=== PATIENT | female | born 1950 | race African-American/Black ===

== ENCOUNTER → 2023-09-15 | Outpatient (REF) | payer MEDICARE ==
[~2023-09-15] MED LIST: CEFTRIAXONE 1 GM VIAL ONE; FENTANYL CITRATE/PF 100MCG/2 ML INJ ONE; IOPAMIDOL 370 MG/ML 100 ML INFUS..BTL INJ ONE; LIDOCAINE 2% /EPINEPHRINE 20 ML SDV INJ ONE; LIDOCAINE HCL 1% LOCAL INJ 20 ML VIAL ONE; MIDAZOLAM HCL 2 MG/2 ML VIAL ONE; SODIUM CHLORIDE 0.9% 250ML 250 ML ONE; SODIUM CHLORIDE 0.9% 500ML 500 ML ONE
[2023-09-15 12:28] LABS: BASOPHILS # (AUTO) 0.1 (0.0-0.1); BASOPHILS % 0.4 % (0.0-1.0); EOSINOPHILS # (AUTO) 0.1 (0.0-0.4); EOSINOPHILS % 0.9 % (0.0-6.0); HEMATOCRIT 34.7 % (34.2-44.1); HEMOGLOBIN 11.6 g/dL (12.0-16.0); LYMPHOCYTES # (AUTO) 0.8 (1.0-3.2); LYMPHOCYTES % 6.2 % (18.0-39.1); MEAN CORPUSCULAR HGB CONC 33.4 g/dL (31-35); MEAN CORPUSCULAR VOLUME 74.8 fL (81-99); MONOCYTES # (AUTO) 0.4 (0.2-0.8); MONOCYTES % 3.4 % (4.4-11.3); NEUTROPHILS # (AUTO) 11.2 (2.1-6.9); NEUTROPHILS % 88.2 % (38.7-80.0); PLATELET COUNT 581 x10e3/uL (140-360); RED BLOOD COUNT 4.64 x10e6/uL (3.6-5.1); RED CELL DISTRIBUTION WIDTH 14.1 % (11.7-14.4); WHITE BLOOD COUNT 12.65 x10e3/uL (4.8-10.8)
[2023-09-15 12:47] LABS: INR 1.13; PROTHROMBIN TIME 14.8 seconds (11.9-14.5)
[2023-09-15 12:49] LABS: PARTIAL THROMBOPLASTIN TIME 37.1 seconds (23.8-35.5)
== END ==
LOC: DX 10:42
PROVIDERS: ATTEND Urology
DX: C67.9 Malignant neoplasm of bladder, unspecified (principal); N13.30 Unspecified hydronephrosis; N18.9 Chronic kidney disease, unspecified
CPT/HCPCS: 36415; 36561; 76937; 76942; 85025; 85610; 85730; 87086; 87205; C1769; C1788; C1874; J0696; J2001 ×2; J2250; J3010; J7040; J7050; Q9967; 50433; 99152; 99153

== ENCOUNTER 2023-12-09 19:58 | Emergency (ER) | payer MEDICARE ==
[~2023-12-09] VITALS: Ht 157.5 cm; Wt 70.3 kg
[~2023-12-09 19:58] MED LIST changes: +ATORVASTATIN CA20 MG PO; -CEFTRIAXONE 1 GM VIAL ONE; +DEXAMETHASONE4 MG PO; -FENTANYL CITRATE/PF 100MCG/2 ML INJ ONE; +HYDROCODON-ACE1 EAC9 PO; -IOPAMIDOL 370 MG/ML 100 ML INFUS..BTL INJ ONE; -LIDOCAINE 2% /EPINEPHRINE 20 ML SDV INJ ONE; -LIDOCAINE HCL 1% LOCAL INJ 20 ML VIAL ONE; -MIDAZOLAM HCL 2 MG/2 ML VIAL ONE; +OLANZAPINE10 MG PO; +PROMETHAZINE HC25 M1 PO; -SODIUM CHLORIDE 0.9% 250ML 250 ML ONE; -SODIUM CHLORIDE 0.9% 500ML 500 ML ONE; +TOPROL XL50 MG PO
[2023-12-09 21:36] LABS: INR 0.93; PROTHROMBIN TIME 12.7 seconds (11.9-14.5)
[2023-12-09 21:37] LABS: PARTIAL THROMBOPLASTIN TIME 25.9 seconds (23.8-35.5)
[2023-12-09 21:45] LABS: ALBUMIN 3.4 g/dL (3.5-5.0); ANION GAP 15.9 mmol/L (8-16); BILIRUBIN,TOTAL 0.4 mg/dL (0.2-1.2); CALCIUM 9.4 mg/dL (8.4-10.2); CREATININE, SERUM 0.96 mg/dL (0.57-1.11); TOTAL PROTEIN 6.7 g/dL (6.5-8.1)
[2023-12-09 21:47] LABS: BASOPHILS % 1.3 % (0.0-1.0); EOSINOPHILS # (AUTO) 0.2 (0.0-0.4); EOSINOPHILS % 5.1 % (0.0-6.0); HEMATOCRIT 31.1 % (34.2-44.1); HEMOGLOBIN 10.3 g/dL (12.0-16.0); LYMPHOCYTES # (AUTO) 1.5 (1.0-3.2); LYMPHOCYTES % 51.9 % (18.0-39.1); MEAN CORPUSCULAR HEMOGLOBIN 27.5 pg (28-32); MEAN CORPUSCULAR HGB CONC 33.1 g/dL (31-35); MEAN CORPUSCULAR VOLUME 83.2 fL (81-99); MONOCYTES # (AUTO) 0.1 (0.2-0.8); NEUTROPHILS # (AUTO) 0.8 (2.1-6.9); NEUTROPHILS % 25.2 % (38.7-80.0); PLATELET COUNT 734 x10e3/uL (140-360); RED BLOOD COUNT 3.74 x10e6/uL (3.6-5.1); RED CELL DISTRIBUTION WIDTH 19.4 % (11.7-14.4); WHITE BLOOD COUNT 2.97 x10e3/uL (4.8-10.8)
[2023-12-09 21:52] LABS: POTASSIUM 2.9 mmol/L (3.5-5.1)
[2023-12-09] MEDS: ONDANSETRON HCL INJ 2MG/ML 2ML 2 MG/ML VIAL IV STA (22:31)
[2023-12-09] MEDS: Morphine 4mg INJECTION 4 MG/ML INJ IV ONE (22:33)
[2023-12-09 22:58] LABS: BILIRUBIN,URINE NEGATIVE (NEGATIVE); CLARITY,URINE CLEAR (CLEAR); COLOR,URINE YELLOW (YELLOW); GLUCOSE, URINE NEGATIVE (NEGATIVE); KETONES,URINE NEGATIVE (NEGATIVE); LEUKOCYTE ESTERASE ,URINE SMALL (NEGATIVE); NITRITE,URINE NEGATIVE (NEGATIVE); PH,URINE 6 (5 - 7); PROTEIN,URINE DIPSTICK 2+ (NEGATIVE); URINE UROBILINOGEN 0.2 mg/dL (0.2 - 1)
[2023-12-09] MEDS ORDERED: IOPAMIDOL 370 MG/ML 100 ML INFUS..BTL INJ ONE (23:15)
[2023-12-09 23:35] LABS: BACTERIA,URINE MANY /HPF; EPITHELIAL CELLS,URINE MODERATE /LPF; WBC,URINE (MAN) >50 /HPF (0-5)
[2023-12-10] MEDS ORDERED: CIPRO500 MG PO (01:19)
[2023-12-10] MEDS ORDERED: KETOROLAC TROME10 MG PO (01:19)
[2023-12-10 01:36] VITALS: O2SAT 100
[2023-12-10 04:38] LABS: EOSINOPHILS % (MANUAL) 1 % (0-7); LYMPHOCYTES % (MANUAL) 61 % (19-48); METAMYELOCYTES % (MANUAL) 3 % (0-0); MONOCYTES % (MANUAL) 3 % (3.4-9.0); MYELOCYTES % (MANUAL) 5 % (0-0); NEUTROPHILS % (MANUAL) 27 % (40-74)
[2023-12-10 04:39] LABS: HYPOCHROMASIA MODERATE; RBC MORPHOLOGY COMMENT ABNORMAL; STOMATOCYTES MODERATE
[2023-12-10 04:40] LABS: ANISOCYTOSIS MODE; PLATELET ESTIMATE ADEQUATE; PLATELET MORPHOLOGY COMMENT NORMAL; POIKILOCYTOSIS MODERATE; TEAR DROP CELLS FEW
== END 2023-12-10 01:36 | disposition home or self-care (01) ==
LOC: ER 20:03
DX: R10.30 Lower abdominal pain, unspecified (principal); C67.9 Malignant neoplasm of bladder, unspecified; N39.0 Urinary tract infection, site not specified; I10 Essential (primary) hypertension; D64.9 Anemia, unspecified; Z11.52 Encounter for screening for COVID-19
CPT/HCPCS: 36415; 74178; 80053; 81001; 85025; 85610; 85730; 87086; 93041; 99284; J2270; J2405; Q9967; U0002

== ENCOUNTER 2024-04-20 09:26 | Inpatient (IN) | payer MEDICARE ==
[~2024-04-20] VITALS: Ht 157.5 cm; Wt 70.3 kg
[~2024-04-20 09:26] MED LIST changes: +AZO BLADDER CO300 MG PO; +CEFDINIR300 MG PO; +CIPRO500 MG PO; +DEPAKOTE250 MG PO; +EX-LAX15 M1 PO; +KETOROLAC TROME10 MG PO
[2024-04-20 10:35] LABS: BASOPHILS % 0.4 % (0.0-1.0); HEMATOCRIT 25.1 % (34.2-44.1); HEMOGLOBIN 8.6 g/dL (12.0-16.0); LYMPHOCYTES # (AUTO) 0.7 (1.0-3.2); LYMPHOCYTES % 5.9 % (18.0-39.1); MEAN CORPUSCULAR HEMOGLOBIN 25.4 pg (28-32); MEAN CORPUSCULAR HGB CONC 34.3 g/dL (31-35); MEAN CORPUSCULAR VOLUME 74.3 fL (81-99); MONOCYTES # (AUTO) 0.2 (0.2-0.8); NEUTROPHILS # (AUTO) 9.9 (2.1-6.9); NEUTROPHILS % 89.4 % (38.7-80.0); RED BLOOD COUNT 3.38 x10e6/uL (3.6-5.1); RED CELL DISTRIBUTION WIDTH 18.5 % (11.7-14.4); WHITE BLOOD COUNT 11.12 x10e3/uL (4.8-10.8)
[2024-04-20 10:39] LABS: INR 1.17; PROTHROMBIN TIME 15.7 seconds (11.9-14.5)
[2024-04-20 10:42] LABS: PLATELET COUNT 63 x10e3/uL (140-360)
[2024-04-20 10:50] LABS: ALBUMIN 2.5 g/dL (3.5-5.0); ALBUMIN/GLOBULIN RATIO 0.5 (0.8-2.0); ANION GAP 26.9 mmol/L (8-16); BILIRUBIN,TOTAL 0.5 mg/dL (0.2-1.2); CALCIUM 9.1 mg/dL (8.4-10.2); CREATININE, SERUM 2.82 mg/dL (0.57-1.11); POTASSIUM 4.9 mmol/L (3.5-5.1); TOTAL PROTEIN 7.7 g/dL (6.5-8.1)
[2024-04-20 11:28] LABS: BAND NEUTROPHILS % (MANUAL) 1 %; LYMPHOCYTES % (MANUAL) 3 % (19-48); MONOCYTES % (MANUAL) 1 % (3.4-9.0); NEUTROPHILS % (MANUAL) 95 % (40-74)
[2024-04-20 11:30] LABS: ANISOCYTOSIS MODERATE; HYPOCHROMASIA MODERATE; MICROCYTOSIS MODERATE; PLATELET ESTIMATE MODERATELY DECREASED; PLATELET MORPHOLOGY COMMENT NORMAL; POLYCHROMASIA FEW; RBC MORPHOLOGY COMMENT ABNORMAL; TARGET CELLS FEW
[2024-04-20] MEDS: SODIUM CHLORIDE 0.9% 1000ML 1,000 ML IV STA (11:30)
[2024-04-20] MEDS: SODIUM CHLORIDE 0.9% IV ONE (13:11)
[2024-04-20 13:29] LABS: BILIRUBIN,URINE SMALL (NEGATIVE); CLARITY,URINE CLOUDY (CLEAR); COLOR,URINE AMBER (YELLOW); GLUCOSE, URINE NEGATIVE (NEGATIVE); KETONES,URINE 1+ (NEGATIVE); LEUKOCYTE ESTERASE ,URINE LARGE (NEGATIVE); NITRITE,URINE POSITIVE (NEGATIVE); PH,URINE 5.5 (5 - 7); PROTEIN,URINE DIPSTICK >=300 (NEGATIVE); URINE UROBILINOGEN 1 mg/dL (0.2 - 1)
[2024-04-20 13:51] LABS: AMORPHOUS SEDIMENT,URINE FEW (FEW); BACTERIA,URINE MANY /HPF; EPITHELIAL CELLS,URINE RARE /LPF; RBC,URINE >50 /HPF (0-5); WBC,URINE (MAN) >50 /HPF (0-5)
[2024-04-20] MEDS: Vancomycin IV 1 GM in SODIUM CHLORIDE 0.9% 250ML 250 ML IV ONE (14:10)
[2024-04-20 15:00] VITALS: PULSE 126; RESP 18; TEMP 97.8
[2024-04-20 15:41] VITALS: BP 154/95; PULSE 120; RESP 20; TEMP 97.8; O2SAT 98
[2024-04-20 15:55] VITALS: BP 154/95; PULSE 120; RESP 20; TEMP 98.7; O2SAT 98
[2024-04-20 16:11] VITALS: BP 154/95; PULSE 120; RESP 20; TEMP 98.7; O2SAT 98
[2024-04-20] MEDS: SODIUM CHLORIDE 0.9% 1000ML 1,000 ML IV SCH (16:25)
[2024-04-20 20:00] VITALS: BP 145/83; PULSE 87; RESP 18; TEMP 98.4; O2SAT 90
[2024-04-20] MEDS ORDERED: POLYETHYLENE GLYCOL 3350 17 GM PACK PO PRN (21:00)
[2024-04-20] MEDS ORDERED: ONDANSETRON HCL INJ 2MG/ML 2ML 2 MG/ML VIAL IV PRN (21:00)
[2024-04-20] MEDS: METOPROLOL SUCCINATE 50 MG TAB XL PO SCH (21:40)
[2024-04-20 23:58] VITALS: BP 132/78; PULSE 125; RESP 16; TEMP 98.4; O2SAT 100
[2024-04-21] MEDS: Vancomycin IV 750 MG in SODIUM CHLORIDE 0.9% 100 ML IV ONE (03:42)
[2024-04-21 05:55] LABS: BASOPHILS % 0.3 % (0.0-1.0); LYMPHOCYTES # (AUTO) 0.7 (1.0-3.2); LYMPHOCYTES % 5.9 % (18.0-39.1); MEAN CORPUSCULAR HEMOGLOBIN 26.4 pg (28-32); MEAN CORPUSCULAR HGB CONC 35.5 g/dL (31-35); MEAN CORPUSCULAR VOLUME 74.3 fL (81-99); MONOCYTES # (AUTO) 0.3 (0.2-0.8); MONOCYTES % 2.2 % (4.4-11.3); NEUTROPHILS # (AUTO) 10.6 (2.1-6.9); NEUTROPHILS % 87.9 % (38.7-80.0); PLATELET COUNT 53 x10e3/uL (140-360); RED BLOOD COUNT 2.65 x10e6/uL (3.6-5.1); RED CELL DISTRIBUTION WIDTH 18.6 % (11.7-14.4); RETICULOCYTE % 0.7 % (0.8-2.2); WHITE BLOOD COUNT 12.03 x10e3/uL (4.8-10.8)
[2024-04-21 06:00] LABS: HEMATOCRIT 19.7 % (34.2-44.1)
[2024-04-21 06:26] LABS: ANION GAP 21.8 mmol/L (8-16); CALCIUM 7.9 mg/dL (8.4-10.2); CHOL/HDL RATIO 11.9 (3.0-3.6); CREATININE, SERUM 2.06 mg/dL (0.57-1.11); POTASSIUM 3.8 mmol/L (3.5-5.1)
[2024-04-21 06:57] LABS: FREE T4 (FREE THYROXINE) 0.81 ng/dL (0.8-1.8); THYROID STIMULATING HORMONE 0.584 uIU/mL (0.350-4.940)
[2024-04-21 07:43] LABS: FOLATE 1.9 ng/mL (7.0-15.4); LYMPHOCYTES % (MANUAL) 4 % (19-48); MONOCYTES % (MANUAL) 1 % (3.4-9.0); NEUTROPHILS % (MANUAL) 95 % (40-74); NUCLEATED RED BLOOD CELLS 4
[2024-04-21 07:45] LABS: PLATELET ESTIMATE MODERATELY DECREASED
[2024-04-21 07:46] LABS: ANISOCYTOSIS MODERATE; HYPOCHROMASIA MODERATE; MICROCYTOSIS MODERATE; PLATELET MORPHOLOGY COMMENT NORMAL; RBC MORPHOLOGY COMMENT ABNORMAL
[2024-04-21 07:47] LABS: TARGET CELLS FEW
[2024-04-21 07:56] VITALS: BP 124/67; PULSE 110; RESP 18; TEMP 97.6; O2SAT 98
[2024-04-21 09:00] VITALS: BP 124/67; PULSE 110; RESP 18; TEMP 97.6; O2SAT 98
[2024-04-21] MEDS ORDERED: Vancomycin IV 750 MG in SODIUM CHLORIDE 0.9% 100 ML IV SCH (09:00)
[2024-04-21] MEDS: DOCUSATE SODIUM 100 MG CAP PO SCH (10:16)
[2024-04-21] MEDS: ASCORBIC ACID 500 MG TAB PO SCH (10:17)
[2024-04-21 11:46] VITALS: BP 131/71; PULSE 106; RESP 17; TEMP 98.8; O2SAT 97
[2024-04-21] MEDS ORDERED: Vancomycin IV 1 GM in SODIUM CHLORIDE 0.9% 250ML 250 ML IV SCH ×2 (12:00→16:00)
[2024-04-21] MEDS ORDERED: SODIUM BICARBONATE 8.4% VIAL 150 ML in DEXTROSE 5% 1,000 ML IV SCH (13:00)
[2024-04-21] MEDS: SODIUM CHLORIDE 0.9% 250ML 250 ML IV ONE ×2 (13:51→13:52)
[2024-04-21] MEDS: SODIUM BICARBONATE 8.4% VIAL 150 ML in DEXTROSE 5% 1,000 ML IV SCH (13:53)
[2024-04-21 14:12] LABS: CREATININE,URINE RANDOM 52.35 mg/dL (47-110)
[2024-04-21] MEDS ORDERED: MYRBETRIQ50 MG PO (14:15)
[2024-04-21] MEDS ORDERED: ONDANSETRON ODT8 MG SL (14:23)
[2024-04-21] MEDS ORDERED: TOPROL XL25 MG PO (14:23)
[2024-04-21] MEDS ORDERED: LISINOPRIL5 MG PO (14:23)
[2024-04-21 14:45] LABS: TOTAL PROTEIN, URINE 214.4 mg/dL (1-14)
[2024-04-21] MEDS: FOLIC ACID 1 MG TAB PO SCH (15:00)
[2024-04-21 16:09] VITALS: BP 128/76; PULSE 74; RESP 18; TEMP 98.7; O2SAT 97
[2024-04-21] MEDS ORDERED: METOPROLOL SUCCINATE 25 MG TAB XL PO SCH (17:00)
[2024-04-21] MEDS: Vancomycin IV 1 GM in SODIUM CHLORIDE 0.9% 250ML 250 ML IV SCH (17:41)
[2024-04-21 20:00] VITALS: BP 136/80; PULSE 107; RESP 20; TEMP 98.6; O2SAT 99
[2024-04-21] MEDS: ATORVASTATIN 20 MG TAB PO SCH (20:35)
[2024-04-21 21:00] VITALS: BP 136/80; PULSE 107; RESP 20; TEMP 98.6; O2SAT 99
[2024-04-22] VITALS (9 sets, daily range): BP systolic 119–134; BP diastolic 72–85; PULSE 102–125; RESP 21–44; TEMP 98–98.6; O2SAT 95–100
[2024-04-22 06:02] LABS: BASOPHILS % 0.3 % (0.0-1.0); HEMATOCRIT 25.9 % (34.2-44.1); HEMOGLOBIN 9.2 g/dL (12.0-16.0); LYMPHOCYTES # (AUTO) 0.7 (1.0-3.2); LYMPHOCYTES % 6.1 % (18.0-39.1); MEAN CORPUSCULAR HEMOGLOBIN 27.2 pg (28-32); MEAN CORPUSCULAR HGB CONC 35.5 g/dL (31-35); MEAN CORPUSCULAR VOLUME 76.6 fL (81-99); MONOCYTES # (AUTO) 0.3 (0.2-0.8); MONOCYTES % 2.1 % (4.4-11.3); NEUTROPHILS # (AUTO) 10.5 (2.1-6.9); NEUTROPHILS % 89.4 % (38.7-80.0); PLATELET COUNT 39 x10e3/uL (140-360); RED BLOOD COUNT 3.38 x10e6/uL (3.6-5.1); RED CELL DISTRIBUTION WIDTH 18.7 % (11.7-14.4); WHITE BLOOD COUNT 11.68 x10e3/uL (4.8-10.8)
[2024-04-22 06:30] LABS: ANION GAP 23.6 mmol/L (8-16); CALCIUM 7.6 mg/dL (8.4-10.2); CREATININE, SERUM 1.76 mg/dL (0.57-1.11); POTASSIUM 3.6 mmol/L (3.5-5.1)
[2024-04-22] MEDS ORDERED: LISINOPRIL 2.5 MG TAB PO SCH (09:00)
[2024-04-22 09:22] LABS: ANISOCYTOSIS MODERATE; HYPOCHROMASIA MODERATE; LYMPHOCYTES % (MANUAL) 1 % (19-48); MONOCYTES % (MANUAL) 3 % (3.4-9.0); NEUTROPHILS % (MANUAL) 96 % (40-74); PLATELET ESTIMATE MARKEDLY DECREASED; PLATELET MORPHOLOGY COMMENT NORMAL; RBC MORPHOLOGY COMMENT ABNORMAL; TARGET CELLS FEW; TOXIC GRANULATION SLIGHT
[2024-04-22 09:23] LABS: MICROCYTOSIS MODERATE; POLYCHROMASIA FEW
[2024-04-22] MEDS ORDERED: ONDANSETRON HCL 4 MG ORAL DISINTEGRATING TAB PO PRN (10:15)
[2024-04-22] MEDS ORDERED: MICAFUNGIN SODIUM 50 MG IV ONE (17:00)
[2024-04-22] MEDS: MICAFUNGIN SODIUM 100 MG in SODIUM CHLORIDE 0.9% 100 ML IV ONE (18:39)
[2024-04-22] MEDS: SODIUM BICARBONATE 8.4% VIAL 100 ML in DEXTROSE 5% 1,000 ML IV SCH (18:44)
[2024-04-23] VITALS (7 sets, daily range): BP systolic 132–136; BP diastolic 76–83; PULSE 119–126; RESP 18–25; TEMP 97.5–98.7; O2SAT 95–100
[2024-04-23 06:03] LABS: BASOPHILS % 0.2 % (0.0-1.0); HEMATOCRIT 22.4 % (34.2-44.1); HEMOGLOBIN 8.2 g/dL (12.0-16.0); LYMPHOCYTES # (AUTO) 0.5 (1.0-3.2); LYMPHOCYTES % 4.7 % (18.0-39.1); MEAN CORPUSCULAR HEMOGLOBIN 27.2 pg (28-32); MEAN CORPUSCULAR HGB CONC 36.6 g/dL (31-35); MEAN CORPUSCULAR VOLUME 74.4 fL (81-99); MONOCYTES # (AUTO) 0.2 (0.2-0.8); MONOCYTES % 1.5 % (4.4-11.3); NEUTROPHILS # (AUTO) 9.4 (2.1-6.9); NEUTROPHILS % 91.4 % (38.7-80.0); PLATELET COUNT 28 x10e3/uL (140-360); RED BLOOD COUNT 3.01 x10e6/uL (3.6-5.1); RED CELL DISTRIBUTION WIDTH 17.8 % (11.7-14.4); WHITE BLOOD COUNT 10.24 x10e3/uL (4.8-10.8)
[2024-04-23 09:57] LABS: LYMPHOCYTES % (MANUAL) 2 % (19-48); MONOCYTES % (MANUAL) 1 % (3.4-9.0); NEUTROPHILS % (MANUAL) 97 % (40-74); NUCLEATED RED BLOOD CELLS 1
[2024-04-23 09:58] LABS: ANISOCYTOSIS MODERATE; HYPOCHROMASIA MODERATE; MICROCYTOSIS MODERATE; PLATELET ESTIMATE MARKEDLY DECREASED; PLATELET MORPHOLOGY COMMENT NORMAL; RBC MORPHOLOGY COMMENT ABNORMAL; TARGET CELLS FEW
[2024-04-23 16:07] LABS: HEPATITIS B SURFACE AG (P) Non Reactive; HEPATITIS C ANTIBODY Non Reactive
[2024-04-23] MEDS ORDERED: MICAFUNGIN SODIUM 100 MG IV SCH (16:15)
[2024-04-23] MEDS: MICAFUNGIN SODIUM 100 MG in SODIUM CHLORIDE 0.9% 100 ML IV SCH (16:59)
[2024-04-24] VITALS (14 sets, daily range): BP systolic 116–139; BP diastolic 69–84; PULSE 114–132; RESP 18–24; TEMP 97.5–98.6; O2SAT 95–100
[2024-04-24 06:12] LABS: BASOPHILS % 0.2 % (0.0-1.0); HEMOGLOBIN 7.9 g/dL (12.0-16.0); LYMPHOCYTES # (AUTO) 0.7 (1.0-3.2); LYMPHOCYTES % 6.8 % (18.0-39.1); MEAN CORPUSCULAR HEMOGLOBIN 27.1 pg (28-32); MEAN CORPUSCULAR HGB CONC 35.9 g/dL (31-35); MEAN CORPUSCULAR VOLUME 75.6 fL (81-99); MONOCYTES # (AUTO) 0.2 (0.2-0.8); MONOCYTES % 1.6 % (4.4-11.3); NEUTROPHILS # (AUTO) 8.6 (2.1-6.9); NEUTROPHILS % 89.7 % (38.7-80.0); RED BLOOD COUNT 2.91 x10e6/uL (3.6-5.1); RED CELL DISTRIBUTION WIDTH 17.9 % (11.7-14.4)
[2024-04-24 06:34] LABS: HEMATOCRIT 23.1 % (34.2-44.1)
[2024-04-24 06:40] LABS: ANION GAP 19.6 mmol/L (8-16); CALCIUM 7.5 mg/dL (8.4-10.2); CREATININE, SERUM 1.38 mg/dL (0.57-1.11)
[2024-04-24 06:42] LABS: PLATELET COUNT 23 x10e3/uL (140-360)
[2024-04-24 07:10] LABS: POTASSIUM 2.6 mmol/L (3.5-5.1)
[2024-04-24] MEDS: KCL 20 MEQ PACKET/ ORAL SOLN NG ONE (11:24)
[2024-04-24] MEDS: POTASSIUM CHLORIDE 40 MEQ in DEXTROSE 5% 1,000 ML IV SCH (11:24)
[2024-04-24 15:22] LABS: BAND NEUTROPHILS % (MANUAL) 3 %; HYPOCHROMASIA MODERATE; LYMPHOCYTES % (MANUAL) 4 % (19-48); MONOCYTES % (MANUAL) 2 % (3.4-9.0); NEUTROPHILS % (MANUAL) 91 % (40-74); NUCLEATED RED BLOOD CELLS 6; PLATELET ESTIMATE MARKEDLY DECREASED; PLATELET MORPHOLOGY COMMENT NORMAL
[2024-04-24] MEDS ORDERED: SODIUM CHLORIDE 0.9% 100 ML ONE (17:39)
[2024-04-24] MEDS ORDERED: POTASSIUM CHL 40 MEQ in DEXTROSE 5% 1,000 ML IV SCH (20:40)
[2024-04-24] MEDS ORDERED: POTASSIUM CHLORIDE 30 MEQ in DEXTROSE 5% 1,000 ML IV SCH (20:45)
[2024-04-24] MEDS: KCL 20MEQ/.9 SOD CHL 1,000 ML IV SCH (22:12)
[2024-04-25] VITALS (35 sets, daily range): BP systolic 80–164; BP diastolic 31–98; PULSE 107–130; RESP 19–52; TEMP 97.1–98.7; O2SAT 96–100
[2024-04-25] MEDS: SODIUM CHLORIDE 0.9% 500ML 500 ML IV ONE (02:41)
[2024-04-25 07:15] LABS: ALBUMIN 1.8 g/dL (3.5-5.0); ALBUMIN/GLOBULIN RATIO 0.5 (0.8-2.0); BILIRUBIN,TOTAL 0.7 mg/dL (0.2-1.2); CALCIUM 7.3 mg/dL (8.4-10.2); CREATININE, SERUM 1.53 mg/dL (0.57-1.11); TOTAL PROTEIN 5.1 g/dL (6.5-8.1)
[2024-04-25 08:02] LABS: BASOPHILS % 0.2 % (0.0-1.0); HEMATOCRIT 23.1 % (34.2-44.1); HEMOGLOBIN 7.6 g/dL (12.0-16.0); LYMPHOCYTES # (AUTO) 0.5 (1.0-3.2); LYMPHOCYTES % 5.5 % (18.0-39.1); MEAN CORPUSCULAR HEMOGLOBIN 26.4 pg (28-32); MEAN CORPUSCULAR HGB CONC 32.9 g/dL (31-35); MEAN CORPUSCULAR VOLUME 80.2 fL (81-99); MONOCYTES # (AUTO) 0.1 (0.2-0.8); MONOCYTES % 0.8 % (4.4-11.3); NEUTROPHILS # (AUTO) 8.8 (2.1-6.9); NEUTROPHILS % 91.6 % (38.7-80.0); RED BLOOD COUNT 2.88 x10e6/uL (3.6-5.1); RED CELL DISTRIBUTION WIDTH 18.6 % (11.7-14.4); WHITE BLOOD COUNT 9.65 x10e3/uL (4.8-10.8)
[2024-04-25 08:13] LABS: MAGNESIUM 1.5 MG/DL (1.3-2.1); PHOSPHORUS 1.6 MG/DL (2.3-4.7)
[2024-04-25 08:15] LABS: PLATELET COUNT 14 x10e3/uL (140-360)
[2024-04-25] MEDS: Vancomycin IV 1 GM in SODIUM CHLORIDE 0.9% 250ML 250 ML IV ONE (09:49)
[2024-04-25] MEDS: SODIUM BICARBONATE 8.4% SYRING 50 ML in DEXTROSE 5% 1,000 ML IV SCH (09:56)
[2024-04-25 10:10] LABS: ABG HCO3 17 mmol/L (22-26); ABG PCO2 20 mmHg (35-45); ABG PH 7.52 (7.35-7.45); ABG PO2 90 mmHg (80-105); ABG TCO2 17
[2024-04-25] MEDS ORDERED: ZIPRASIDONE 20 MG VIAL IM ONE (12:15)
[2024-04-25 14:51] LABS: BAND NEUTROPHILS % (MANUAL) 6 %; LYMPHOCYTES % (MANUAL) 3 % (19-48); MONOCYTES % (MANUAL) 1 % (3.4-9.0); NEUTROPHILS % (MANUAL) 90 % (40-74); NUCLEATED RED BLOOD CELLS 9
[2024-04-25 14:52] LABS: HYPOCHROMASIA MODERATE; PLATELET ESTIMATE MARKEDLY DECREASED; PLATELET MORPHOLOGY COMMENT NORMAL
[2024-04-25] MEDS: MUPIROCIN 2% OINT 22 GM TUBE TOP SCH (17:20)
[2024-04-25 19:42] LABS: CLARITY,URINE CLOUDY (CLEAR); COLOR,URINE STRAW (YELLOW); PH,URINE 7 (5 - 7)
[2024-04-25 19:43] LABS: BILIRUBIN,URINE NEGATIVE (NEGATIVE); GLUCOSE, URINE 1+ (NEGATIVE); KETONES,URINE NEGATIVE (NEGATIVE); LEUKOCYTE ESTERASE ,URINE 1+ (NEGATIVE); NITRITE,URINE NEGATIVE (NEGATIVE); PROTEIN,URINE DIPSTICK >=300 (NEGATIVE); URINE UROBILINOGEN 0.2 mg/dL (0.2 - 1)
[2024-04-25 19:47] LABS: BACTERIA,URINE MANY /HPF; EPITHELIAL CELLS,URINE FEW /LPF; RBC,URINE >50 /HPF (0-5)
[2024-04-26] VITALS (36 sets, daily range): BP systolic 104–153; BP diastolic 42–129; PULSE 99–127; RESP 19–46; TEMP 97.7–99; O2SAT 99–100
[2024-04-26 06:44] LABS: BASOPHILS % 0.1 % (0.0-1.0); HEMATOCRIT 21.2 % (34.2-44.1); HEMOGLOBIN 7.1 g/dL (12.0-16.0); LYMPHOCYTES # (AUTO) 0.8 (1.0-3.2); LYMPHOCYTES % 7.9 % (18.0-39.1); MEAN CORPUSCULAR HEMOGLOBIN 26.3 pg (28-32); MEAN CORPUSCULAR HGB CONC 33.5 g/dL (31-35); MEAN CORPUSCULAR VOLUME 78.5 fL (81-99); MONOCYTES # (AUTO) 0.2 (0.2-0.8); MONOCYTES % 1.7 % (4.4-11.3); NEUTROPHILS # (AUTO) 8.6 (2.1-6.9); NEUTROPHILS % 88.7 % (38.7-80.0); PLATELET COUNT 43 x10e3/uL (140-360); RED CELL DISTRIBUTION WIDTH 18.8 % (11.7-14.4); WHITE BLOOD COUNT 9.64 x10e3/uL (4.8-10.8)
[2024-04-26 07:13] LABS: ALBUMIN/GLOBULIN RATIO 0.7 (0.8-2.0); ANION GAP 21.4 mmol/L (8-16); BILIRUBIN,TOTAL 0.9 mg/dL (0.2-1.2); CREATININE, SERUM 1.56 mg/dL (0.57-1.11)
[2024-04-26 07:18] LABS: POTASSIUM 3.4 mmol/L (3.5-5.1)
[2024-04-26 08:14] LABS: ABG PCO2 20 mmHg (35-45); ABG PH 7.54 (7.35-7.45)
[2024-04-26 08:15] LABS: ABG HCO3 17 mmol/L (22-26); ABG PO2 172 mmHg (80-105); ABG TCO2 17
[2024-04-26] MEDS ORDERED: POTASSIUM CHLORIDE 40 MEQ in DEXTROSE 5% 1,000 ML IV SCH (15:45)
[2024-04-26] MEDS: POTASSIUM PHOSPHATE 15 MM in SODIUM CHLORIDE 0.9% 250ML 250 ML IV ONE (16:31)
[2024-04-26] MEDS: POTASSIUM CHL 40 MEQ in DEXTROSE 5% 1,000 ML IV SCH (17:01)
[2024-04-26] MEDS: ACETAMINOPHEN 1000 MG/100 ML 100 ML IV ONE (20:40)
[2024-04-26] MEDS: ACETAMINOPHEN 1000 MG/100 ML IV STA (20:40)
[2024-04-26] MEDS: LACTATED RINGER'S 1,000 ML ONE (20:40)
[2024-04-26] MEDS: SODIUM CHLORIDE 0.9% 1000ML 1,000 ML ONE (20:46)
[2024-04-26] MEDS: SODIUM CHLORIDE 0.9% 250ML 250 ML ONE (20:46)
[2024-04-27] VITALS (28 sets, daily range): BP systolic 75–129; BP diastolic 40–81; PULSE 91–114; RESP 0–31; TEMP 95.6–98.2; O2SAT 94–100
[2024-04-27 06:20] LABS: BASOPHILS % 0.1 % (0.0-1.0); LYMPHOCYTES # (AUTO) 1.1 (1.0-3.2); LYMPHOCYTES % 12.2 % (18.0-39.1); MEAN CORPUSCULAR HEMOGLOBIN 26.3 pg (28-32); MEAN CORPUSCULAR HGB CONC 32.7 g/dL (31-35); MEAN CORPUSCULAR VOLUME 80.6 fL (81-99); MONOCYTES # (AUTO) 0.3 (0.2-0.8); NEUTROPHILS # (AUTO) 7.7 (2.1-6.9); NEUTROPHILS % 83.1 % (38.7-80.0); PLATELET COUNT 21 x10e3/uL (140-360); RED BLOOD COUNT 2.47 x10e6/uL (3.6-5.1); RED CELL DISTRIBUTION WIDTH 19.4 % (11.7-14.4); WHITE BLOOD COUNT 9.31 x10e3/uL (4.8-10.8)
[2024-04-27 06:33] LABS: HEMATOCRIT 19.9 % (34.2-44.1); HEMOGLOBIN 6.5 g/dL (12.0-16.0)
[2024-04-27 06:51] LABS: ALBUMIN 1.9 g/dL (3.5-5.0); ALBUMIN/GLOBULIN RATIO 0.6 (0.8-2.0); ANION GAP 19.2 mmol/L (8-16); BILIRUBIN,TOTAL 0.5 mg/dL (0.2-1.2); CREATININE, SERUM 1.74 mg/dL (0.57-1.11); POTASSIUM 4.2 mmol/L (3.5-5.1); TOTAL PROTEIN 4.9 g/dL (6.5-8.1)
[2024-04-27 06:55] LABS: CALCIUM 6.6 mg/dL (8.4-10.2)
[2024-04-27 10:15] LABS: ANISOCYTOSIS MODERATE; LYMPHOCYTES % (MANUAL) 7 % (19-48); MONOCYTES % (MANUAL) 1 % (3.4-9.0); NEUTROPHILS % (MANUAL) 91 % (40-74); NUCLEATED RED BLOOD CELLS 1; PLATELET ESTIMATE MARKEDLY DECREASED; PLATELET MORPHOLOGY COMMENT NORMAL; RBC MORPHOLOGY COMMENT ABNORMAL; REACTIVE LYMPHOCYTES 1
[2024-04-27 10:16] LABS: HYPOCHROMASIA MODERATE; MICROCYTOSIS SLIGHT; OVALOCYTES FEW; TARGET CELLS FEW
[2024-04-27] MEDS: HYDROCODONE/APAP 10MG-325MG TAB PO PRN (10:54)
[2024-04-27] MEDS: SODIUM CHLORIDE 0.9% 250ML 250 ML IV ONE (16:17)
[2024-04-27] MEDS: SODIUM CHLORIDE 0.9% 250ML 250 ML ONE (16:17)
[2024-04-27] MEDS: SODIUM BICARBONATE 8.4% VIAL 100 ML in DEXTROSE 5% 1,000 ML IV SCH (18:17)
[2024-04-27 18:37] LABS: BASOPHILS # (AUTO) 0.1 (0.0-0.1); BASOPHILS % 0.6 % (0.0-1.0); HEMATOCRIT 24.9 % (34.2-44.1); HEMOGLOBIN 8.1 g/dL (12.0-16.0); LYMPHOCYTES # (AUTO) 1.2 (1.0-3.2); LYMPHOCYTES % 12.4 % (18.0-39.1); MEAN CORPUSCULAR HGB CONC 32.5 g/dL (31-35); MONOCYTES # (AUTO) 0.4 (0.2-0.8); MONOCYTES % 3.6 % (4.4-11.3); NEUTROPHILS # (AUTO) 7.7 (2.1-6.9); NEUTROPHILS % 80.1 % (38.7-80.0); RED CELL DISTRIBUTION WIDTH 17.9 % (11.7-14.4); WHITE BLOOD COUNT 9.61 x10e3/uL (4.8-10.8)
[2024-04-27 18:43] LABS: PLATELET COUNT 13 x10e3/uL (140-360)
[2024-04-28] VITALS (27 sets, daily range): BP systolic 105–135; BP diastolic 54–111; PULSE 88–110; RESP 9–29; TEMP 98.2–99.7; O2SAT 95–100
[2024-04-28] MEDS: SODIUM CHLORIDE 0.9% 250ML 250 ML ONE (00:15)
[2024-04-28 07:59] LABS: BASOPHILS # (AUTO) 0.1 (0.0-0.1); BASOPHILS % 0.5 % (0.0-1.0); EOSINOPHILS % 0.1 % (0.0-6.0); HEMATOCRIT 23.4 % (34.2-44.1); HEMOGLOBIN 7.6 g/dL (12.0-16.0); LYMPHOCYTES # (AUTO) 1.2 (1.0-3.2); LYMPHOCYTES % 12.2 % (18.0-39.1); MEAN CORPUSCULAR HGB CONC 32.5 g/dL (31-35); MONOCYTES # (AUTO) 0.4 (0.2-0.8); MONOCYTES % 3.6 % (4.4-11.3); NEUTROPHILS % 81.6 % (38.7-80.0); RED BLOOD COUNT 2.82 x10e6/uL (3.6-5.1); RED CELL DISTRIBUTION WIDTH 18.3 % (11.7-14.4); WHITE BLOOD COUNT 9.85 x10e3/uL (4.8-10.8)
[2024-04-28 08:28] LABS: ANION GAP 13.9 mmol/L (8-16); CREATININE, SERUM 1.53 mg/dL (0.57-1.11)
[2024-04-28 08:40] LABS: POTASSIUM 2.9 mmol/L (3.5-5.1)
[2024-04-28 08:41] LABS: CALCIUM 6.5 mg/dL (8.4-10.2)
[2024-04-28 08:44] LABS: PLATELET COUNT 38 x10e3/uL (140-360)
[2024-04-28] MEDS: POTASSIUM CHLORIDE 20MEQ/100ML 200 ML IV ONE (08:50)
[2024-04-28 11:40] LABS: BAND NEUTROPHILS % (MANUAL) 1 %; LYMPHOCYTES % (MANUAL) 9 % (19-48); MONOCYTES % (MANUAL) 9 % (3.4-9.0); NEUTROPHILS % (MANUAL) 81 % (40-74); NUCLEATED RED BLOOD CELLS 26; PLATELET ESTIMATE MARKEDLY DECREASED; PLATELET MORPHOLOGY COMMENT NORMAL; RBC MORPHOLOGY COMMENT NORMAL
[2024-04-28] MEDS: POTASSIUM CHLORIDE 40 MEQ in DEXTROSE 5% 1,000 ML IV SCH (12:58)
[2024-04-29] VITALS (22 sets, daily range): BP systolic 97–132; BP diastolic 29–69; PULSE 91–112; RESP 13–32; TEMP 98.7–100.2; O2SAT 99–100
[2024-04-29] MEDS ORDERED: METOCLOPRAMIDE HCL 10 MG/2ML VIAL IV PRN (07:00)
[2024-04-29 07:37] LABS: ANION GAP 16.6 mmol/L (8-16); CREATININE, SERUM 1.65 mg/dL (0.57-1.11); POTASSIUM 3.6 mmol/L (3.5-5.1)
[2024-04-29 07:38] LABS: CALCIUM 6.6 mg/dL (8.4-10.2)
[2024-04-29] MEDS: ACETAMINOPHEN 325 MG TAB PO PRN (08:11)
[2024-04-29 08:23] LABS: BASOPHILS % 0.3 % (0.0-1.0); LYMPHOCYTES # (AUTO) 1.8 (1.0-3.2); LYMPHOCYTES % 19.7 % (18.0-39.1); MEAN CORPUSCULAR HEMOGLOBIN 26.5 pg (28-32); MEAN CORPUSCULAR HGB CONC 31.7 g/dL (31-35); MEAN CORPUSCULAR VOLUME 83.5 fL (81-99); MONOCYTES # (AUTO) 0.3 (0.2-0.8); MONOCYTES % 3.4 % (4.4-11.3); NEUTROPHILS # (AUTO) 6.7 (2.1-6.9); NEUTROPHILS % 73.9 % (38.7-80.0); RED BLOOD COUNT 2.72 x10e6/uL (3.6-5.1); RED CELL DISTRIBUTION WIDTH 18.5 % (11.7-14.4)
[2024-04-29 08:29] LABS: HEMATOCRIT 22.7 % (34.2-44.1); HEMOGLOBIN 7.2 g/dL (12.0-16.0)
[2024-04-29 08:30] LABS: PLATELET COUNT 19 x10e3/uL (140-360)
[2024-04-29 11:05] LABS: BAND NEUTROPHILS % (MANUAL) 3 %; LYMPHOCYTES % (MANUAL) 16 % (19-48); MONOCYTES % (MANUAL) 3 % (3.4-9.0); NEUTROPHILS % (MANUAL) 77 % (40-74); NUCLEATED RED BLOOD CELLS 14; REACTIVE LYMPHOCYTES 1
[2024-04-29 11:06] LABS: ANISOCYTOSIS MODERATE; HYPOCHROMASIA MODERATE; MICROCYTOSIS MODERATE; PLATELET ESTIMATE MARKEDLY DECREASED; PLATELET MORPHOLOGY COMMENT NORMAL; POLYCHROMASIA FEW; RBC MORPHOLOGY COMMENT ABNORMAL; TARGET CELLS FEW
[2024-04-29] MEDS: MAGNESIUM SULFATE 2GM/50ML 50 ML IV ONE ×2 (16:53→20:52)
[2024-04-29] MEDS: CALCIUM CARBONATE 500 MG CHEWABLE TABS PO SCH (16:53)
[2024-04-29] MEDS: ATORVASTATIN 20 MG TAB NG SCH (21:39)
[2024-04-29] MEDS: CALCIUM CARBONATE 500 MG CHEWABLE TABS NG SCH (21:40)
[2024-04-30] VITALS (16 sets, daily range): BP systolic 109–158; BP diastolic 60–89; PULSE 103–108; RESP 16–36; TEMP 98.1–99.5; O2SAT 96–100
[2024-04-30 07:28] LABS: ANION GAP 17.6 mmol/L (8-16); CREATININE, SERUM 1.58 mg/dL (0.57-1.11); MAGNESIUM 2.5 MG/DL (1.3-2.1); POTASSIUM 3.6 mmol/L (3.5-5.1)
[2024-04-30 07:37] LABS: CALCIUM 6.6 mg/dL (8.4-10.2)
[2024-04-30] MEDS: CALCIUM CARBONATE 500 MG CHEWABLE TABS NG SCH (23:12)
[2024-05-01] VITALS (9 sets, daily range): BP systolic 140–159; BP diastolic 75–89; PULSE 92–138; RESP 17–21; TEMP 98.6–100.3; O2SAT 92–100
[2024-05-01 05:16] LABS: BASOPHILS % 0.1 % (0.0-1.0); LYMPHOCYTES # (AUTO) 1.3 (1.0-3.2); LYMPHOCYTES % 9.5 % (18.0-39.1); MEAN CORPUSCULAR HEMOGLOBIN 26.9 pg (28-32); MEAN CORPUSCULAR HGB CONC 31.9 g/dL (31-35); MEAN CORPUSCULAR VOLUME 84.3 fL (81-99); MONOCYTES # (AUTO) 0.3 (0.2-0.8); MONOCYTES % 2.4 % (4.4-11.3); NEUTROPHILS # (AUTO) 12.2 (2.1-6.9); NEUTROPHILS % 87.2 % (38.7-80.0); PLATELET COUNT 53 x10e3/uL (140-360); RED BLOOD COUNT 2.68 x10e6/uL (3.6-5.1); RED CELL DISTRIBUTION WIDTH 19.3 % (11.7-14.4); WHITE BLOOD COUNT 13.97 x10e3/uL (4.8-10.8)
[2024-05-01] MEDS: METOPROLOL TARTRATE INJ 1 MG/ML VIAL IV PRN (05:20)
[2024-05-01 05:36] LABS: ALBUMIN 1.9 g/dL (3.5-5.0); ALBUMIN/GLOBULIN RATIO 0.6 (0.8-2.0); ANION GAP 17.5 mmol/L (8-16); BILIRUBIN,TOTAL 0.4 mg/dL (0.2-1.2); CREATININE, SERUM 1.7 mg/dL (0.57-1.11); POTASSIUM 3.5 mmol/L (3.5-5.1); TOTAL PROTEIN 5.3 g/dL (6.5-8.1)
[2024-05-01 05:46] LABS: HEMOGLOBIN 7.2 g/dL (12.0-16.0)
[2024-05-01 05:47] LABS: HEMATOCRIT 22.6 % (34.2-44.1)
[2024-05-01 05:48] LABS: CALCIUM 6.9 mg/dL (8.4-10.2)
[2024-05-01] MEDS ORDERED: ASCORBIC ACID500 MG PO (13:19)
[2024-05-01] MEDS ORDERED: TUMS200 MG NG (13:19)
[2024-05-01] MEDS ORDERED: ACETAMINOPHEN325 M1 PO (13:19)
[2024-05-01] MEDS ORDERED: ONDANSETRON ODT4 MG PO (13:19)
== END 2024-05-01 19:45 | DRG 314 ==
LOC: ER 09:30 → ERHOLD 14:01 → MED/SURG2 15:36 → ICU 04-24 23:21 → MED/SURG2 04-30 21:46
PROVIDERS: ADMIT Internal Medicine; ATTEND Internal Medicine
PROC: 3E03329 Introduction of Other Anti-infective into Peripheral Vein, Percutaneous Approach (ICD-10-PCS; 2024-04-20)
PROC: 30233N1 Transfusion of Nonautologous Red Blood Cells into Peripheral Vein, Percutaneous Approach (ICD-10-PCS; principal; 2024-04-21)
PROC: 02HV33Z Insertion of Infusion Device into Superior Vena Cava, Percutaneous Approach (ICD-10-PCS; 2024-04-25)
PROC: 03HY32Z Insertion of Monitoring Device into Upper Artery, Percutaneous Approach (ICD-10-PCS; 2024-04-25)
PROC: 4A133B1 Monitoring of Arterial Pressure, Peripheral, Percutaneous Approach (ICD-10-PCS; 2024-04-25)
PROC: 4A133J1 Monitoring of Arterial Pulse, Peripheral, Percutaneous Approach (ICD-10-PCS; 2024-04-25)
PROC: 30233R1 Transfusion of Nonautologous Platelets into Peripheral Vein, Percutaneous Approach (ICD-10-PCS; 2024-04-27)
DX: T80.211A Bloodstream infection due to central venous catheter, initial encounter (principal); A41.9 Sepsis, unspecified organism; G93.41 Metabolic encephalopathy; R65.21 Severe sepsis with septic shock; J80 Acute respiratory distress syndrome; J69.0 Pneumonitis due to inhalation of food and vomit; B37.7 Candidal sepsis; B49 Unspecified mycosis; E44.0 Moderate protein-calorie malnutrition; N39.0 Urinary tract infection, site not specified; Z16.11 Resistance to penicillins; E87.20 Acidosis, unspecified; N17.9 Acute kidney failure, unspecified; E87.0 Hyperosmolality and hypernatremia; B95.2 Enterococcus as the cause of diseases classified elsewhere; B96.89 Other specified bacterial agents as the cause of diseases classified elsewhere; D69.59 Other secondary thrombocytopenia; I10 Essential (primary) hypertension; C67.9 Malignant neoplasm of bladder, unspecified; Z11.52 Encounter for screening for COVID-19; E87.6 Hypokalemia; Z68.28 Body mass index [BMI] 28.0-28.9, adult; E83.51 Hypocalcemia; Z88.1 Allergy status to other antibiotic agents; Z88.2 Allergy status to sulfonamides; F03.90 Unspecified dementia, unspecified severity, without behavioral disturbance, psychotic disturbance, mood disturbance, and anxiety; E78.5 Hyperlipidemia, unspecified; L89.151 Pressure ulcer of sacral region, stage 1; L89.321 Pressure ulcer of left buttock, stage 1; L89.311 Pressure ulcer of right buttock, stage 1; Z79.60 Long term (current) use of unspecified immunomodulators and immunosuppressants; Z96.0 Presence of urogenital implants; Z90.710 Acquired absence of both cervix and uterus; Z92.3 Personal history of irradiation
CPT/HCPCS: 36415; 36600; 70450; 71045; 74018; 74176; 76770; 80048; 80053; 80061; 80202; 81001; 82270; 82550; 82570; 82607; 82728; 82746; 82805; 82948; 83036; 83540; 83605; 83615; 83735; 84100; 84156; 84300; 84439; 84443; 84466; 85025; 85045; 85610; 85730; 86022; 86850; 86900; 86920; 86922; 87040; 87071; 87086; 87186; 87205; 93005; 94799; 99252; 99284; J0692; J2248; J2543; J3475; J3480; J7030; J7040; J7050; J7070; P9016; P9034; U0002